=== PATIENT | female | born 1980 | race African-American/Black ===

== ENCOUNTER 2025-06-08 20:43 | Emergency (ER) | payer SELFPAY ==
[~2025-06-08] VITALS: Ht 165.1 cm; Wt 97.0 kg
[2025-06-08 21:07] VITALS: O2SAT 99
[2025-06-08] MEDS: LEVETIRACETAM 1000MG PREMIX 100 ML IV STA (22:08)
[2025-06-08 22:09] LABS: BASOPHILS % 1.3 % (0.0-2.0); EOSINOPHILS % 2.6 % (0.0-5.0); HEMATOCRIT. 26.0 % (36.0-48.0); HEMOGLOBIN. 7.9 g/dL (12.0-16.0); LYMPHOCYTES % 24.1 % (20.0-50.0); MEAN PLATELET VOLUME 7.8 fl (7.4-10.4); MONOCYTES % 6.6 % (2.0-8.0); NEUTROPHILS % 65.4 % (40.0-76.0); PLATELET 415 x1000/uL (130-400); RED BLOOD CELL COUNT 3.92 mill/uL (4.2-5.4); RED CELL DISTRIBUTION WIDTH 18.5 % (11.6-14.6)
[2025-06-08 22:10] LABS: ADD RBC MORPHOLOGY YES
[2025-06-08 22:31] LABS: PLATELET ESTIMATE INCREASED
[2025-06-08 22:53] LABS: CREATININE 1.2 mg/dL (0.6-1.0)
[2025-06-08 22:54] LABS: ETHANOL BLOOD < 10 mg/dL (<10); UREA NITROGEN BLOOD 17 mg/dL (9-23)
[2025-06-08 22:55] LABS: ASPARTATE AMINOTRANSFERASE 17 IU/L (<34)
[2025-06-08 22:56] LABS: BILIRUBIN DIRECT < 0.1 mg/dL (<=3.0); BILIRUBIN TOTAL 0.2 mg/dL (0.1-1.0); PROTEIN TOTAL 8.1 g/dL (6.0-8.3)
[2025-06-09] MEDS: POTASSIUM CHLORIDE 20MEQ TABLET SR PO ONE (01:02)
[2025-06-09 01:07] VITALS: BP 200/130; PULSE 88; RESP 12; TEMP 36.7; O2SAT 99
== END 2025-06-09 01:15 | disposition left against medical advice (07) ==
LOC: ER 20:43
DX: R56.9 Unspecified convulsions (principal); E87.6 Hypokalemia; D64.9 Anemia, unspecified; E11.9 Type 2 diabetes mellitus without complications; I10 Essential (primary) hypertension; Z86.73 Personal history of transient ischemic attack (TIA), and cerebral infarction without residual deficits
CPT/HCPCS: 80076; 80048; 80320; 85025; 36415; 96374; 99284; J1953; Z7610; G0480